=== PATIENT | female | born 1995 | race Caucasian/White ===

== ENCOUNTER 2021-05-28 10:55 | Emergency (ER) | payer OTHER, SELFPAY ==
[2021-05-28 11:04] VITALS: BP 121/75; PULSE 94; RESP 16; TEMP 36.9; O2SAT 100
--- NOTE | 2021-05-28 11:27 | ED.ABDPAIN ---
HPI - Abdominal Pain General Chief Complaint: Abdominal Pain Stated Complaint: strong pain on right side Time Seen by Provider: 05/28/21 11:27 Source: patient and family Mode of arrival: ambulatory History of Present Illness HPI narrative: Patient presents with right upper quadrant pain. Patient has had alcohol intake greater than usual for the past 3 days. Increase in spicy fried foods. MD elicited complaint: abdominal pain Related Data Home Medications Medication Instructions Recorded Confirmed No Home Medications 05/28/21 05/28/21 Allergies Allergy/AdvReac Type Severity Reaction Status Date / Time No Known Allergies Allergy Unverified 05/28/21 11:22 Review of Systems Review of Systems: CONSTITUTIONAL: Denies fever, chills, or sweats. EYES: Denies visual changes, redness, or discharge. ENT: Denies rhinorrhea, congestion, sore throat, or otalgia. CARDIOVASCULAR: Denies chest pain, palpitations, or edema. RESPIRATORY: Denies cough or dyspnea. GASTROINTESTINAL: Denies , vomiting, or diarrhea. Reports right upper quadrant pain GENITOURINARY: Denies dysuria or hematuria. SKIN: Denies rash or itching. MUSCULOSKELETAL: Denies back pain, joint pain, or myalgia. NEUROLOGIC: Denies headache, numbness, or weakness. PSYCHIATRIC: Denies anxiety or depression. Allergic/Immunologic: Comments: At time of signature, agree with nursing past medical, surgical, social and family history. There is no relevant family history pertinent to the presenting complaint Exam Narrative: GENERAL: Well-appearing, well-nourished, and in no acute distress. HEAD: Normocephalic, atraumatic. EYES: PERRLA and EOMI. ENT: Nares clear, no rhinorrhea or epistaxis. Mucous membranes moist. NECK: Supple. CHEST: Clear to auscultation. No respiratory distress. HEART: Regular rate and rhythm. No murmur heard. Normal peripheral pulses. ABDOMEN: Soft, , nondistended, normal active bowel sounds. Moderate right upper quadrant pain positive [place] sign EXTREMITIES: Normal range of motion. No edema. SKIN: Warm, dry, no rash. NEURO: No focal deficits. Alert and oriented x3. [place] Coma Scale Eye Opening: Spontaneous 4 [place] Coma Scale Motor: Obeys Commands 6 Perez Coma Scale Verbal: Oriented 5 [place] Coma Scale Total 15 Course Vital Signs Vital signs: Vital Signs Temperature 36.9 C 05/28/21 11:04 Pulse Rate 94 05/28/21 11:04 Respiratory Rate 16 05/28/21 11:04 Blood Pressure 121/75 05/28/21 11:04 Pulse Oximetry 100 05/28/21 11:04 Temperature 36.9 C 05/28/21 11:04 Pulse Rate 94 05/28/21 11:04 Respiratory Rate 16 05/28/21 11:04 Blood Pressure 121/75 05/28/21 11:04 Pulse Oximetry 100 05/28/21 11:04 Transfer Transfered to: [facility] Transportation: Other (Private vehicle) Transfer rationale: Higher level of care Accepting physician: dr Morales MDM - Abdominal Pain Differential Diagnosis Differential diagnosis: Likely abdominal pain, acute appendicitis, calculus of kidney, constipation, diverticulitis, endometriosis, pancreatitis and small bowel obstruction Medical Records Attestation: I reviewed the patient's medical records. Lab Data Labs: Urine Glucose Negative Reference Range: Negative Urine Bilirubin Negative Reference Range: Negative Urine Ketone Negative Reference Range: Negative Urine Specific Smoot 1.030 Reference Range:1.001-1.035 Urine Blood Negative Reference Range: Negative * * Urine pH 7.5 Reference Range: 5.0-9.0 Urine Protein
== END 2021-05-28 11:42 | disposition short-term general hospital (02) ==
PROVIDERS: Emergency Provider Nurse Practitioner Family
DX: R10.11 Right upper quadrant pain (principal)
CPT/HCPCS: 81003; 99212; G0463

== ENCOUNTER 2023-04-24 15:58 | Outpatient (CLI) | payer OTHER, SELFPAY ==
--- NOTE | ~2023-04-24 | US_ITS ---
EXAMINATION: US OB /maternal detail DATE: 04/24/2023 17:17 INDICATION: Second trimester anatomic survey TECHNIQUE: Real-time ultrasound of the pelvis was performed. COMPARISON: None. FINDINGS: There is a single living fetus in vertex presentation. The placenta is posterior. heart rate is 150 beats per minute (bpm). cardiac activity and movement are noted. The amniotic fluid index is subjectively normal. The following anatomy was identified as normal: 4 chamber heart 3 vessel cord cord insertion kidneys urinary bladder stomach spine diaphragm ventricles cisterna magna cerebellum The following biometric data were obtained: Biparietal diameter (BPD): 5.1 cm; head circumference (HC): 19.4 cm; abdominal circumference (AC): 16 .7 cm; femur length (FL): 3.6 cm. These measurements are concordant. Estimated weight is 430 g +/- 64 g, which correlates with the 66th percentile when 09/03/2023 is used as estimated date of delivery. As single measurements, these parameters are each equal to the following estimated gestational ages w ith ranges of +/- 2 standard deviations: BPD: 21 weeks 2 days +/- 1 weeks 5 days. HC: 21 weeks 4 days +/- 1 weeks 3 days. AC: 21 weeks 5 days +/- 2 weeks 0 days. FL: 21 weeks 2 days +/- 1 weeks 6 days. estimated gestational age based solely on measurements from this exam is 21 weeks 3 days +/- 1 weeks 4 days. IMPRESSION: 1. Single living fetus in vertex presentation. 2. Estimated weight is 430 g +/- 64 g, which correlates with the 66th percentile when 09/03/2023 is used as estimated date of delivery. Reviewed, dictated and finalized at location B. IMPRESSION: 1. Single living fetus in vertex presentation. 2. Estimated weight is 430 g +/- 64 g, which correlates with the 66th per centile when 09/03/2023 is used as estimated date of delivery.
== END 2023-04-24 15:59 | disposition home or self-care (01) ==
LOC: ANHIMG 16:02
PROVIDERS: PCP Obstetrics & Gynecology; Visit Provider Obstetrics & Gynecology Gynecologic Oncology
DX: Z36.9 Encounter for antenatal screening, unspecified (principal)
CPT/HCPCS: 76805

== ENCOUNTER 2025-04-04 19:16 | Emergency (ER) | payer OTHER, SELFPAY ==
[2025-04-04 19:19] VITALS: BP 112/60; PULSE 122; RESP 20; TEMP 36.8; O2SAT 100
--- NOTE | 2025-04-04 21:24 | PC.NURSE ---
Pt ambulated to desk and states she is going to go home and call her doctor in the morning. Pt encouraged to stay and be seen by provider. Pt then ambulated out of ED w/ male visitor.
== END 2025-04-04 21:24 | disposition left against medical advice (07) ==
PROVIDERS: PCP Obstetrics & Gynecology
DX: M54.9 Dorsalgia, unspecified (principal)
CPT/HCPCS: 99199

== ENCOUNTER 2025-04-09 17:10 | Emergency (ER) | payer OTHER, SELFPAY ==
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
[2025-04-09 17:20] VITALS: BP 107/60; PULSE 99; RESP 18; TEMP 36.2; O2SAT 100
== END 2025-04-09 18:16 | disposition home or self-care (01) ==
PROVIDERS: Emergency Provider Nurse Practitioner Family; PCP Obstetrics & Gynecology
DX: O9A.211 Injury, poisoning and certain other consequences of external causes complicating pregnancy, first trimester (principal); Z3A.12 12 weeks gestation of pregnancy; S63.501A Unspecified sprain of right wrist, initial encounter; S66.911A Strain of unspecified muscle, fascia and tendon at wrist and hand level, right hand, initial encounter; V47.5XXA Car driver injured in collision with fixed or stationary object in traffic accident, initial encounter
CPT/HCPCS: 73110; 99213; G0463